=== PATIENT | male | born 1970 | race Caucasian/White ===

== ENCOUNTER 2016-03-14 21:00 | Emergency (ER) | payer OTHER ==
[~2016-03-14] VITALS: Ht 179.1 cm; Wt 84.6 kg
[~2016-03-14 21:00] MED LIST: ALBUAER2 INH; AMINTAB13; B-COTAB18; FLUT0.15 NAE; LEVO75TA5 PO; MULTTAB58 PO
[2016-03-14 21:02] VITALS: TEMP 36.4; Ht 179.1 cm; Wt 84.6 kg
--- NOTE | 2016-03-14 21:36 | EMERGENCY ROOM VISIT NOTE ---
ED Visit Note First contact with patient: 21:19 CHIEF COMPLAINT: Hand laceration HISTORY OF PRESENT ILLNESS: This 45-year-old male patient presents to the emergency department ambulatory after cutting the left hand when he was shucking oysters at work approximately one hour ago. The bleeding has not stopped. Denies weakness or numbness of the hand or fingers. The patient denies any pain. The patient denies any other injuries. The patient's Tetanus shot is up to date. REVIEW OF SYSTEMS: A 6 system review of systems was completed with positives and pertinent negatives listed in the HPI. ALLERGIES: No known drug allergies MEDICATIONS: See nursing notes PMH: Hypothyroidism SOCIAL HISTORY: The patient does not smoke. He is employed PHYSICAL EXAM: Vital Signs: Reviewed Nurse's notes, vital signs stable. GENERAL : This is a 45-year-old male, in no acute distress, well-developed, well- nourished. SKIN: There is a 1 cm long laceration on the palmar aspect of the left hand in the webspace between the first and second fingers. The edges gape apart with traction. There is no foreign material in the wound and it looks clean. There is minimal bleeding. No deep structures such as tendons, bones, or nerves are seen in the base of the wound. Normal strength and movement of the fingers and wrist. Capillary refill less than 2 seconds. Normal sensation to light and sharp touch. EMERGENCY DEPARTMENT COURSE: I examined the patient. Using sterile technique the wound was cleaned with Betadine. The area was sterilely draped. 2 ml of 1% buffered lidocaine was used to anesthetize the laceration on the hand. Once the patient was numb, the wound was copiously irrigated under pressure with sterile saline. The wound was explored and was as described above. The laceration was repaired using 3 simple interrupted 5-0 nylon sutures with the wound edges being well approximated. The patient tolerated the procedure well. The bleeding stopped. The area was cleaned with sterile saline and dressed with bacitracin ointment and bandage. The patient was given Td immunization. The patient was discharged home in good condition. The patient will be placed on Cipro twice a day 5 days given the fact that he was shucking oysters to cover for potential vibrio. This was a puncture wound to the hand. The patient has full range of motion of the fingers and good strength. He does not have any numbness or tingling in the first or second fingers. I could not visualize any obvious tendon involvement on examination of the wound. The laceration does seem to be in the webspace between the first and second fingers. However, I advised him that there could be underlying injury not visible at this time and if he does have any trouble with movement, numbness, tingling, he should follow-up with orthopedics for further evaluation and management. DIAGNOSIS: Hand laceration DISCHARGE INSTRUCTIONS & TREATMENT: Keep wound clean and dry. Do not allow any crusting or dried blood to accumulate on sutures. If this occurs, use a 1:1 solution of hydrogen peroxide/water on a Q-tip to clean the wound. Use an antibiotic ointment for 3-4 days, then let wound dry. Suture removal in 7-10 days. Return sooner for any signs of infection (increasing redness, swelling, drainage). Ice and elevate for swelling and pain. Ibuprofen 600 mg every 6 hrs for pain. Keep covered when in sun until sutures removed then SPF 50 or higher for one year. Vitamin E oil if desired two weeks after suture removal for reduction of scar. Cipro every 12 hours for 5 days to help prevent infection Follow-up with orthopedics if any difficulty moving the hand or fingers, persistent numbness for further evaluation and management Return with any worsening symptoms At work, Must keep the hand clean and dry for the next 7 days Problem List Medical Problems: (1) Hypothyroid Status: Chronic Surgical Problems: (1) S/P rotator cuff repair Status: Chronic (2) S/P tonsillectomy Status: Chronic Current/Historical Medications Scheduled Levothyroxine Sodium (Levothyroxine Sodium), 75 MCG PO DAILY Multiple Vitamin (Multivitamin), 1 TAB PO DAILY Allergies Coded Allergies: No Known Allergies (Verified , 03/14/16) Vital Signs Date Time Temp Pulse Resp B/P Pulse Ox O2 Delivery O2 Flow Rate FiO2 03/14/16 22:05 50 16 121/76 96 Room Air 03/14/16 21:02 36.4 115 18 131/83 94 Room Air Medications Administered Medications (Trade) Dose Ordered Sig/Mary Route Start Time Stop Time Status Last Admin Dose Admin Diphtheria/ Pertussis/Tetanus Vacc (Adacel Inj) 0.5 ml ONCE ONCE IM. 03/14/16 22:00 03/14/16 22:01 DC 03/14/16 22:01 0.5 ML Ciprofloxacin (Cipro 500MG Home Pack) 1 homepack UD ONCE PO 03/14/16 22:00 03/14/16 22:01 DC 03/14/16 22:00 1 HOMEPACK Departure Information Impression Primary Impression: Hand laceration Dispostion Home / Self-Care Condition GOOD Referrals Ravi Soler D.O. (PCP) Peter Hdz M.D. Patient Instructions ED Laceration Hand, My [facility] Additional Instructions Keep wound clean and dry. Do not allow any crusting or dried blood to accumulate on sutures. If this occurs, use a 1:1 solution of hydrogen peroxide/ water on a Q-tip to clean the wound. Use an antibiotic ointment for 3-4 days, then let wound dry. Suture removal in 7-10 days. Return sooner for any signs of infection (increasing redness, swelling, drainage). Ice and elevate for swelling and pain. Ibuprofen 600 mg every 6 hrs for pain. Keep covered when in sun until sutures removed then SPF 50 or higher for one year. Vitamin E oil if desired two weeks after suture removal for reduction of scar. Cipro every 12 hours for 5 days to help prevent infection Follow-up with orthopedics if any difficulty moving the hand or fingers, persistent numbness for further evaluation and management Return with any worsening symptoms At work, Must keep the hand clean and dry for the next 7 days Problem Qualifiers Primary Impression: Hand laceration Encounter type: initial encounter Laterality: left Qualified Codes: S61.412A - Laceration without foreign body of left hand, initial encounter
[2016-03-14] MEDS ORDERED: XYLOCAINE 1%/SOD BICARB 20 ML VIAL INFIL ONE (21:45)
[2016-03-14] MEDS ORDERED: DIPHTHERIA/TETANUS/PERTUSSIS 0.5 ML SYR/VIAL IM. ONE (22:00)
[2016-03-14] MEDS ORDERED: CIPROFLOXACIN 500MG HOME PACK PO ONE (22:00)
[2016-03-14 22:05] VITALS: BP 121/76; PULSE 50; O2SAT 96
[2016-03-16] MEDS ORDERED: CIPR-255 PO (13:32)
--- NOTE | 2016-03-16 13:43 | Pharmacy Progress Note ---
ED Pharmacist Progress Note Date of Service: Mar 16, 2016. Patient called because he was not able to get his Rx at [facility]. I reviewed the ED visit note. He was to be given an RX for Cipro BID x 5 days. NICOLETTE Mckeon was the provider who saw this patient but she is not working today. NICOLETTE Ricks reviewed note and transmitted Cipro RX to [facility] per patient's request. I notified patient that Rx was sent.
== END 2016-03-14 22:06 | disposition home or self-care (01) ==
LOC: C.EDB 21:02 → C.EDD 22:06
DX: S61.412A Laceration without foreign body of left hand, initial encounter (principal); W45.8XXA Other foreign body or object entering through skin, initial encounter; Z23 Encounter for immunization

== ENCOUNTER 2016-03-24 16:58 | Emergency (ER) | payer OTHER ==
[~2016-03-24 16:58] MED LIST changes: -ALBUAER2 INH; -AMINTAB13; -B-COTAB18; +CIPR-255 PO; -FLUT0.15 NAE
[2016-03-24 17:09] VITALS: BP 105/70; TEMP 36.5
--- NOTE | 2016-03-24 17:34 | EMERGENCY ROOM VISIT NOTE ---
ED Visit Note First contact with patient: 17:17 CHIEF COMPLAINT: Suture removal This patient returns to the ED today for removal of sutures that were placed 10 days ago. There has been no swelling, redness, or drainage from the wound. The patient feels like the laceration is healing well, but does note that for the past few days has experienced little bit of pain in the laceration region. REVIEW OF SYSTEMS: Head: No headache, injury or neck pain. Skin: No rash, new lesions, or masses. General: No fever or chills, fatigue, loss of appetite , or significant recent weight gain or loss. PMH: The patient is healthy; there is no significant medical or surgical history. SOCIAL HISTORY: Patient lives at home. PHYSICAL EXAM: Vital Signs: Reviewed Nurse's notes. There is a sutured wound on the with minimal signs of infection. There is slight erythema to the wound edges with tenderness. No fluctuant abscess noted. No drainage. The wound was not completely healed at the surface. EMERGENCY DEPARTMENT COURSE: The sutures were removed without any difficulty. There was slight separation of the wound edges superficially. I did cleanse the region in place one Steri-Strip over this. This is to help with skin integrity due to location for the next few days. Because he potentially has a small cellulitis developing he was placed on Keflex 500 mg 4 times a day for 7 days. I do not suspect any abscess. He is to return in 48 hours for recheck if persistent or worsening symptoms. He was educated upon worrisome symptoms in which to return, had questions answered prior to discharge and was discharged home in good condition. He is to follow-up with the orthopedic group , Dr. Hdz, for follow-up of this injury. DIAGNOSIS: Healing laceration and suture removal Problem List Medical Problems: (1) Hypothyroid Status: Chronic Surgical Problems: (1) S/P rotator cuff repair Status: Chronic (2) S/P tonsillectomy Status: Chronic Current/Historical Medications Scheduled Cephalexin Monohydrate (Keflex), 500 MG PO QID Levothyroxine Sodium (Levothyroxine Sodium), 75 MCG PO DAILY Multiple Vitamin (Multivitamin), 1 TAB PO DAILY Allergies Coded Allergies: No Known Allergies (Verified , 03/14/16) Vital Signs Date Time Temp Pulse Resp B/P Pulse Ox O2 Delivery O2 Flow Rate FiO2 03/24/16 18:06 56 19 97 03/24/16 17:09 36.5 58 20 105/70 96 Room Air Medications Administered Medications (Trade) Dose Ordered Sig/Mary Route Start Time Stop Time Status Last Admin Dose Admin Cephalexin Monohydrate (Keflex 500MG Home Pack) 1 homepack NOW STAT PO 03/24/16 17:45 03/24/16 17:46 DC 03/24/16 17:45 1 HOMEPACK Departure Information Impression Primary Impression: Encounter for removal of sutures Additional Impression: Cellulitis Dispostion Home / Self-Care Condition GOOD Prescriptions Cephalexin Monohydrate (Keflex) 500 Mg Cap 500 MG PO QID for 6 Days, #24 CAP Prov: Lee Teixeira PA-C 03/24/16 Referrals Ravi Soler D.OKatherine (PCP) Patient Instructions My [facility] Additional Instructions You were seen in the emergency Department for removal of your sutures. These were removed and a small Steri-Strip was placed that should last about 1- 2 days. Please take the Keflex one tablet 4 times a day for 7 days. You were given the first 24 hours here in a home pack with the remainder of the prescription sent to her pharmacy. Please return to the ER in 48 hours if no resolution or worsening of your symptoms. Please return to the emergency department with any new/concerning symptoms. Problem Qualifiers
[2016-03-24] MEDS ORDERED: CEPHALEXIN 500MG HOME PACK 1 EA BTL PO STA (17:45)
[2016-03-24] MEDS ORDERED: CEPH500C PO (17:49)
[2016-03-24 18:06] VITALS: PULSE 56; O2SAT 97
== END 2016-03-24 18:07 | disposition home or self-care (01) ==
LOC: C.EDB 16:59 → C.EDD 18:07
DX: Z48.02 Encounter for removal of sutures (principal); L03.90 Cellulitis, unspecified; E03.9 Hypothyroidism, unspecified